=== PATIENT | female | born 1955 | race Caucasian/White ===

== ENCOUNTER → 2016-12-27 | Outpatient (CLI) | payer BC ==
[~2016-12-27] MED LIST: ACETAMINOPHEN-1 EAC1 ORAL; ALBUTEROL SULF8.5 GM INH; AZITHROMYCIN250 MG ORAL; BENTYL10 MG ORAL; CALCIUM500 M3 PO; COREG25 MG ORAL; IBUPROFEN600 MG ORAL; NORCO 5-325 TA1 EACH ORAL; NORVASC5 MG ORAL; PERCOCET 5-3251 EACH ORAL; PRILOSEC OTC20 MG ORAL; PRILOSEC20 MG ORAL; PRILOSEC40 MG ORAL; PROBIOTIC1 EAC5 PO; REGLAN5 MG ORAL; TESSALON PERLE100 MG ORAL; TRAZODONE HCL150 MG ORAL; TRAZODONE HCL50 MG ORAL; XANAX0.5 MG ORAL
[2016-12-27 20:43] LABS: BASOPHILS % (AUTO) 2.1 % (0.0-2.0); EOSINOPHILS % (AUTO) 3.7 % (0.0-3.0); LYMPHOCYTES % (AUTO) 30.1 % (20.0-45.0); MEAN CORPUSCULAR HEMOGLOBIN 32.8 PG (27.0-31.0); MEAN CORPUSCULAR HGB CONC 34.7 G/DL (32.0-36.0); MEAN CORPUSCULAR VOLUME 94 FL (80-99); MEAN PLATELET VOLUME 6.1 FL (6.5-10.1); MONOCYTES % (AUTO) 6.3 % (1.0-10.0); NEUTROPHILS % (AUTO) 57.8 % (45.0-75.0); PLATELET COUNT 212 K/UL (150-450); RED BLOOD COUNT 4.33 M/UL (4.20-5.40); RED CELL DISTRIBUTION WIDTH 11.1 % (11.6-14.8); WHITE BLOOD COUNT 4.9 K/UL (4.8-10.8)
[2016-12-27 20:59] LABS: ALANINE AMINOTRANSFERASE 12 U/L (3-33); ALBUMIN/GLOBULIN RATIO 1.8 (1.0-2.7); ANION GAP 12 (5-15); ASPARTATE AMINO TRANSFERASE 16 U/L (5-40); CALCIUM 9.4 mg/dL (8.6-10.2); CARBON DIOXIDE 27 mEQ/L (20-30); CHLORIDE 102 mEQ/L (98-107); CHOLESTEROL 201 mg/dL (< 200); CHOLESTEROL/HDL RATIO 2.5 (3.3-4.4); CREATININE 0.6 mg/dL (0.5-0.9); GLOMERULAR FILTRATION RATE > 60 mL/min (>60); HEMOLYSIS 8; LDL CHOLESTEROL (CALC.) 100 mg/dL (60-99); MAGNESIUM 1.8 mg/dL (1.7-2.5); PHOSPHORUS 4.4 mg/dL (2.5-4.8); POTASSIUM 3.7 mEQ/L (3.4-4.9); SODIUM 141 mEQ/L (135-145); TOTAL PROTEIN 6.6 g/dL (6.6-8.7)
[2016-12-27 21:01] LABS: HEMOGLOBIN A1C 5.8 % (< 6.0)
== END | disposition home or self-care (01) ==
LOC: LAB 07:13
DX: I10 Essential (primary) hypertension (principal); E66.9 Obesity, unspecified; L40.9 Psoriasis, unspecified; Z83.3 Family history of diabetes mellitus
CPT/HCPCS: 36415; 80053; 80061; 82306; 82607; 82746; 83036; 83735; 84100; 84443; 85025

== ENCOUNTER 2017-04-21 12:45 | Emergency (ER) | payer BC ==
[~2017-04-21] VITALS: Ht 170.2 cm; Wt 74.8 kg
[2017-04-21 13:05] VITALS: BP 147/88
[2017-04-21] MEDS ORDERED: IBUPROFEN600 MG ORAL (13:25)
[2017-04-21] MEDS ORDERED: TRAMADOL HCL50 MG ORAL (13:25)
[2017-04-21 13:29] VITALS: BP 147/88
--- NOTE | 2017-04-21 13:36 | Diagnostic Imaging Report ---
Indication: PAIN Technique: 3 views left hand Comparison: none Findings: No acute fractures. No dislocations. The joint spaces are preserved. Impression: No acute process
--- NOTE | 2017-04-21 22:01 | Emergency Room Report ---
History of Present Illness General Chief Complaint: Upper Extremity Injury Source: Patient Present Illness HPI The patient is a 61-year-old female presenting for left hand pain after falling yesterday. She states that she tripped and fell onto her left hand and felt her fingers hyperextend. Pain is now 8/10 dull ache and does not radiate worse with movement. She denies previous injury to the hand. She denies any numbness or tingling. She denies any other injury or symptoms Allergies: Coded Allergies: No Known Allergies (Unverified , 01/21/13) Patient History Past Medical History: see triage record Pertinent Family History: none Reviewed Nursing Documentation: PMH: Agreed, PSxH: Agreed Nursing Documentation-PMH Hx Cardiac Problems: Yes Hx Hypertension: Yes Hx Cancer: No Hx Gastrointestinal Problems: Yes Hx Neurological Problems: No Review of Systems All Other Systems: negative except mentioned in HPI Physical Exam Vital Signs Date Time Temp Pulse Resp B/P (MAP) Pulse Ox O2 Delivery O2 Flow Rate FiO2 04/21/17 12:49 98.2 62 18 147/88 94 04/21/17 13:05 Room Air Sp02 EP Interpretation: reviewed, normal General Appearance: no apparent distress, alert, GCS 15, non-toxic Head: normocephalic, atraumatic Musculoskeletal: back normal, decreased range of motion - L 2nd finger, swelling - L 2nd and 3rd digit Neurologic: alert, oriented x3, responsive, motor strength/tone normal, sensory intact, speech normal Psychiatric: judgement/insight normal, memory normal, mood/affect normal, no suicidal/homicidal ideation Skin: normal color, no rash, warm/dry, well hydrated Procedures Splinting Splinting : Consent: Verbal Location: L hand Pre-Made Type: metal Splint: volar Pre-Proc Neuro Vasc Exam: normal Post-Proc Neuro Vasc Exam: normal Patient Tolerated: Well Complications: None Medical Decision Making PA Attestation Dr. Medina is my supervising physician. Patient management was discussed with my supervising physician Diagnostic Impression: Primary Impression: Finger sprain Qualified Codes: S63.651A - Sprain of metacarpophalangeal joint of left index finger, initial encounter ER Course The patient is a 61-year-old female presenting for left hand pain after falling yesterday Differential diagnoses considered but not limited to: Fracture, contusion, sprain, dislocation Physical exam: Vitals within normal limits. no apparent distress There is tenderness to palpation, swelling, and slight ecchymosis over the L 2nd - 5th digits. Limited active ROM of the 2nd digit. X-ray of the hand is unremarkable A volar splint is placed as the patient has multiple sprained digits. the patient is given RICE instructions. The patient will followup with PMD. ER precautions given Other X-Ray Diagnostic Results Other X-Ray Diagnostic Results : X-Ray ordered: L hand # of Views/Limited Vs Complete: 3 View Indication: Pain EP Interpretation: Yes SINDHU Xray: Interpretation reviewed, by supervising MD, and agrees with findings. Interpretation: no dislocation, no soft tissue swelling, no fractures Impression: No acute disease Electronically Signed by: Brock Valdovinos PA-C Last Vital Signs Date Time Temp Pulse Resp B/P (MAP) Pulse Ox O2 Delivery O2 Flow Rate FiO2 04/21/17 13:29 98.2 80 18 147/88 94 04/21/17 13:05 Room Air Status: improved Disposition: HOME, SELF-CARE Condition: Improved Scripts Tramadol Hcl* (ULTRAM*) 50 Mg Tablet 50 MG ORAL Q6H Y for For Pain, #10 TAB 0 Refills Prov: BROCK VALDOVINOS.A. 04/21/17 Ibuprofen* (MOTRIN*) 600 Mg Tablet 600 MG ORAL Q8H Y for For Pain, #30 TAB 0 Refills Prov: BROCK VALDOVINOS P.A. 04/21/17 Departure Forms: Return to Work Return to Work Date: Apr 25, 2017 Other Restrictions: Limited use of L hand Patient Instructions: Finger Sprain, RICE for Routine Care of Injuries Additional Instructions: I discussed my findings with the patient. All questions and concerns have been answered. Treatment and medication compliance have been addressed. I advised the patient that they need to follow up with PMD in 3-5 days. Return to ED if pain remains or worsens, numbness or tingling occurs, new rash is noticed, fever is noticed, or if needed for any reason. Patient verbalized understanding of discharge instructions. BROCK VALDOVINOS Apr 21, 2017 22:01
== END 2017-04-21 13:35 | disposition home or self-care (01) ==
LOC: EEVIPCON 13:17 → EMR 13:17
DX: S63.651A Sprain of metacarpophalangeal joint of left index finger, initial encounter (principal); S60.032A Contusion of left middle finger without damage to nail, initial encounter; S60.042A Contusion of left ring finger without damage to nail, initial encounter; S60.052A Contusion of left little finger without damage to nail, initial encounter; S60.022A Contusion of left index finger without damage to nail, initial encounter; W18.30XA Fall on same level, unspecified, initial encounter; Y92.89 Other specified places as the place of occurrence of the external cause; I10 Essential (primary) hypertension
CPT/HCPCS: 29125; 99284

== ENCOUNTER 2017-07-11 13:53 | Emergency (ER) | payer BC, OTHER ==
[~2017-07-11] VITALS: Ht 170.2 cm; Wt 74.8 kg
[~2017-07-11 13:53] MED LIST changes: +TRAMADOL HCL50 MG ORAL
--- NOTE | 2017-07-11 14:47 | Diagnostic Imaging Report ---
Indication: Pain Findings: 2 views of the left humerus were obtained. There is an irregularity about the humeral head that appears to be a sclerotic band. This may be a site of an old injury. There is no acute fracture identified. The bones are osteopenic. There is no malalignment definitely seen. IMPRESSION: No acute injury identified
[2017-07-11] MEDS ORDERED: CALCIUM CARBON650 M2 PO (14:55)
[2017-07-11] MEDS ORDERED: TRAZODONE HCL150 MG ORAL (14:55)
--- NOTE | 2017-07-11 16:50 | Emergency Room Report ---
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 It is exacerbated upon overhead reach, ADLs such as hooking bra straps , and lifting materials about a 90 angle such as hanging an IV bag. Patient has appreciable trauma or fall. Patient reports previous injury of humerus fracture many years ago. Meds bruising, erythema, increased temperature palpation. She reports that upon raising arm tightness and pain radiates up from the left shoulder to the left portion of neck. Denies numbness tingling or loss of sensation or gross motor movements of the extremities. Allergies: Coded Allergies: ALICE INHIBITORS (Verified Allergy, Unknown, 07/11/17) Patient History Past Medical History: see triage record Past Surgical History: none Pertinent Family History: none Last Menstrual Period: Post Now: No Reviewed Nursing Documentation: PMH: Agreed, PSxH: Agreed Nursing Documentation-PMH Hx Cardiac Problems: Yes Hx Hypertension: Yes Hx Cancer: No Hx Gastrointestinal Problems: Yes - Inguinal and hiatal hernia, diverticulosis Review of Systems All Other Systems: negative except mentioned in HPI Physical Exam Vital Signs Date Time Temp Pulse Resp B/P (MAP) Pulse Ox O2 Delivery O2 Flow Rate FiO2 07/11/17 14:49 97.8 60 18 138/73 95 Room Air 97.9 Sp02 EP Interpretation: reviewed, normal General Appearance: no apparent distress, alert, GCS 15, non-toxic Head: normocephalic, atraumatic Eyes: bilateral eye normal inspection, bilateral eye PERRL ENT: hearing grossly normal, normal voice Neck: full range of motion, no bony tend, tender lateral - left lateral ttp and pain with overhead arm reach of the SCM/ Shoulder and trapezius musculature. Respiratory: lungs clear, normal breath sounds, speaking full sentences Cardiovascular #1: regular rate, rhythm Cardiovascular #2: 2+ radial (R), 2+ radial (L) Musculoskeletal: back normal, gait/station normal, normal range of motion, other - FROM with pain exacerbated above the 90* angle, no clicking palpated at time of exam. equal pulses bilaterally. unable to perform lift-off test- pain exacerbated. no weakness and negative neer's exam. , tender - TTP to the anterio-lateral left shoulder. 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 Medical Decision Making SINDHU adan is my supervising Physician whom patient management has been discussed with. Diagnostic Impression: Primary Impression: Shoulder pain, left Qualified Codes: M25.512 - Pain in left shoulder ER Course Pt. 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 It is exacerbated upon overhead reach, ADLs such as hooking bra straps, and lifting materials about a 90 angle such as hanging an IV bag. Patient has appreciable trauma or fall. Patient reports previous injury of humerus fracture many years ago. Meds bruising, erythema, increased temperature palpation. She reports that upon raising arm tightness and pain radiates up from the left shoulder to the left portion of neck. Denies numbness tingling or loss of sensation or gross motor movements of the extremities. Ddx considered but are not limited to Fracture, dislocation, contusion, Sprain/ Strain/Spasm, arthritis, labrum tear, rotator cuff injury just to name a few. Vital signs: are WNL, pt. is afebrile H&PE are most consistent with musculoskeletal injury will perform imaging to r/ o fractures/dislocations. ORDERS: - X-ray Left Shoulder - negative for fx, Dislocation, or significant soft tissue injury, per preliminary read in ED, and signed by SINDHU Ya, my supervising physician has reviewed, and agrees with my interpretation. ED INTERVENTIONS: - none -d/w pt. conservative treatment, and to follow up with a primary care provider. pt given a list of primary care clinics for follow up. d/w pt. to return to the ED with worsening or new symptoms. d/w pt. recommend orthopedic follow up and MRI if symptoms persist. DISCHARGE: At this time pt. is stable for d/c to home. Will provide printed patient care instructions, and any necessary prescriptions. Care plan and follow up instructions have been discussed with the patient prior to discharge. Other X-Ray Diagnostic Results Other X-Ray Diagnostic Results : X-Ray ordered: Left Shoulder # of Views/Limited Vs Complete: 3 View Indication: Pain EP Interpretation: Yes SINDHU Xray: Interpretation reviewed, by supervising MD, and agrees with findings. Interpretation: no dislocation, no soft tissue swelling, no fractures Impression: No acute disease Electronically Signed by: Alecia Ya PA-C Last Vital Signs Date Time Temp Pulse Resp B/P (MAP) Pulse Ox O2 Delivery O2 Flow Rate FiO2 07/11/17 14:49 97.8 60 18 138/73 95 Room Air 97.9 Disposition: HOME, SELF-CARE Condition: Stable Scripts Lidocaine (Lidoderm) 1 Each Adh..patch 1 PATCH TOPIC DAILY, #25 PATCH 0 Refills Patch(es) may remain in place for up to 12 hours in any 24-hour period. Prov: Alecia Ya 07/11/17 Carisoprodol (CARISOPRODOL) 250 Mg Tablet 250 MG ORAL QHS, #4 TAB Prov: Alecia Ya 07/11/17 Diclofenac Potassium (DICLOFENAC POTASSIUM) 50 Mg Tablet 50 MG PO TID, #30 TAB Prov: Alecia Ya 07/11/17 Referrals: Isrrael Storey MD (PCP) Departure Forms: Return to Work Return to Work Date: Jul 11, 2017 Work Restrictions: No Heavy Lifting Other Restrictions: No heavy lifting ( less than 15lbs) , Limited use of left shoulder x 1 week Return to Full Activity: Jul 18, 2017 Patient Instructions: Shoulder Pain Additional Instructions: Take medications as directed. Follow up with a Primary Care Provider in 3-5 days For ORTHOPEDIC REFERRAL , MRI recommended if your symptoms persist Return sooner to ED if new symptoms occur, or current symptoms become worse. Do not drink alcohol, drive, or operate heavy machinery while taking SOMA/ Carisoprodol as this may cause drowsiness. - Please note that this Emergency Department Report was dictated using [employer] record technician technology software, occasionally this can lead to erroneous entry secondary to interpretation by the dictation equipment. Alecia Ya Jul 11, 2017 16:50
[2017-07-11] MEDS ORDERED: CARISOPRODOL250 MG ORAL (16:51)
[2017-07-11] MEDS ORDERED: DICLOFENAC POTA50 MG PO (16:51)
[2017-07-11] MEDS ORDERED: LIDODERM700 M1 TOPIC (16:51)
[2017-07-11 17:04] VITALS: BP 131/81
[2017-07-11 17:06] VITALS: BP 131/81
== END 2017-07-11 17:06 | disposition home or self-care (01) ==
LOC: EMR 14:56
DX: M25.512 Pain in left shoulder (principal); I10 Essential (primary) hypertension; Z88.8 Allergy status to other drugs, medicaments and biological substances
CPT/HCPCS: 99283

== ENCOUNTER → 2018-03-13 | Day surgery (SDC) | payer OTHER ==
[2018-03-13] VITALS (10 sets, daily range): BP systolic 104–147; BP diastolic 64–89
[~2018-03-13] VITALS: Ht 170.2 cm; Wt 63.0 kg
[~2018-03-13] MED LIST changes: +Acetaminophen (Non formulary) 100 ML IV ONE; +Bupivacaine w/Epi 0.25% 30ml Vial INJ ONE; +CALCIUM CARBON650 M2 PO; +CARISOPRODOL250 MG ORAL; +D5 1/2NS 1,000 ML IV SCH; +DICLOFENAC POTA50 MG PO; +HYDROmorphone 1mg/ml Carpuject SUBQ PRN; +Ketorolac 30mg Inj IV PRN; +LIDODERM700 M1 TOPIC; +LR 1000ml ONE; +Midazolam 2mg/2ml Inj ONE; +NS Irrig 4000ml IRRIG ONE; +Norco 5mg/325mg tab ORAL PRN; +Tylenol #3 tab (300mg/30mg) ORAL PRN; +Zemuron 50mg/5ml Inj IV ONE; +ceFAZolin 1gm IVPB IVPB ONE; +celeBREX 200mg Cap **SURGERY PATIENTS ONLY ORAL ONE; +fentaNYL 100 mcg/2 mL IV ONE; +fentaNYL 100 mcg/2 mL IV PRN; +oxyCONTIN 20mg tab ORAL ONE
--- NOTE | 2018-03-13 06:58 | Pre-Procedure Note/Attestation ---
Pre-Procedure Note/Attestation Complete Prior to Procedure Planned Procedure: left Procedure Narrative: left shoulder scope, sad, FULL jamarcus Indications for Procedure Pre-Operative Diagnosis: left shoulder impingement Attestation I attest that I discussed the nature of the procedure; its benefits; risks and complications; and alternatives (and the risks and benefits of such alternatives ), prior to the procedure, with the patient (or the patient's legal airport representative). I attest that, if there was a reasonable possibility of needing a blood transfusion, the patient (or the patient's legal airport representative) was given the [facility] standardized written summary, pursuant to the [place] Blood Safety Act ([place] Health and Safety Code # 1645, as amended). I attest that I re-evaluated the patient just prior to the surgery and that there has been no change in the patient's H&P, except as documented below: NONE Alberto Fair MD Mar 13, 2018 06:58
--- NOTE | 2018-03-13 08:08 | Anethesia Preoperative Eval ---
Anesthesia Pre-op PMH/ROS General Date of Evaluation: Mar 13, 2018 Time of Evaluation: 06:45 ASA Score: ASA 1 Mallampati Score Class I : Soft palate, uvula, fauces, pillars visible Class II: Soft palate, uvula, fauces visible Class III: Soft palate, base of uvula visible Class IV: Only hard plate visible Mallampati Classification: Class II Allergies: Coded Allergies: ALICE INHIBITORS (Verified Allergy, Unknown, 07/11/17) Patient NPO?: Yes NPO Date: Mar 12, 2018 NPO Time: 11:11 Anesthesia Pre-op Phys. Exam Physician Exam Last Vital Signs Date Time Temp Pulse Resp B/P (MAP) Pulse Ox O2 Delivery O2 Flow Rate FiO2 03/13/18 06:20 97.4 95 20 144/75 96 Room Air 97.4 Airway Exam Mallampati Score: Class I Rey Andrade MD Mar 13, 2018 08:08
--- NOTE | 2018-03-13 08:27 | Brief Operative Note ---
Immediate Post Operative Note Operative Note Chief Complaint: left shoulder pain Pre-op Diagnosis: left shoulder impingement Procedure: left shoulder scope, sad, full [place] Post-op Diagnosis: same as pre-op Findings: consistent w/pre-op dx studies Surgeon: md joan Test Worker: rosario mckeon Anesthesiologist: md cassie/Jelly Anesthesia: general Specimen: none Complications: none Condition: stable Fluids: ns Estimated Blood Loss: minimal Drains: none Implant(s) used?: No Elo Mckeno Mar 13, 2018 08:27
--- NOTE | 2018-03-13 08:30 | Immediate Post-Op Evaluation ---
Immediate Post-Op Evalulation Immediate Post-Op Evalulation Procedure: left shoulder secompression and jamarcus procedure Date of Evaluation: Mar 13, 2018 Time of Evaluation: 08:30 Nausea: No Vomiting: No Rey Andrade MD Mar 13, 2018 08:30
--- NOTE | 2018-03-13 11:10 | 48 Hour Post Anesthesia Eval ---
Post Anesthesia Evaluation Procedure: left shoulder secompression and jamarcus procedure Date of Evaluation: Mar 13, 2018 Time of Evaluation: 11:10 Blood Pressure Systolic: 114 0: 68 Pulse Rate: 70 Respiratory Rate: 14 O2 Sat by Pulse Oximetry: 98 Airway: patent Nausea: No Vomiting: No If pain is > 6 Comment: 0 Hydration Status: adequate Cardiopulmonary Status: stable Mental Status/LOC: patient returned to baseline Follow-up Care/Observations: na Post-Anesthesia Complications: none Follow-up care needed: N/A Jelly Cardoza CRNA Mar 13, 2018 11:10
--- NOTE | 2018-03-13 11:42 | 48 Hour Post Anesthesia Eval ---
Post Anesthesia Evaluation Procedure: left shoulder secompression and jamarcus procedure Date of Evaluation: Mar 13, 2018 Time of Evaluation: 11:42 Nausea: No Vomiting: No Rey Andrade MD Mar 13, 2018 11:42
--- NOTE | 2018-03-13 14:15 | Operative Note - Dictated ---
DATE OF OPERATION: 03/13/2018 PREOPERATIVE DIAGNOSES: 1. Left shoulder impingement. 2. Left shoulder AC joint arthritis. POSTOPERATIVE DIAGNOSES: 1. Left shoulder degenerative anterior as well as posterior labral tearing without detachment from glenoid. 2. 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 3. Left shoulder subacromial impingement. 4. Left shoulder AC joint arthritis. PROCEDURE: 1. Left shoulder arthroscopy and extensive intra-articular shaving. 2. Left shoulder debridement of the posterior as well as anterior labrum. 3. Left shoulder subacromial bursoscopy, bursectomy, and subacromial decompression. 4. Left shoulder full Lillian procedure (resection of the distal 1 cm of the clavicle). SURGEON: Alberto Fair M.D. TITLE SPECIALIST: Elo Tompkins PA-C. Private Branch Exchange Operator was present during the actual operative portion of the case and was important and essential part of the operation. During the operation, the data control assistant held and operated the arthroscopic camera for visualization, assisted by manipulating the arm to help with visualization, and helped with essential parts of the repair process as necessary such as operating surgical instruments under surgeon supervision, suture management, and wound closures. ANESTHESIOLOGIST: Tatiana Noe MD ANESTHESIA: General LMA anesthesia combined with interscalene block. EBL: Minimal. COMPLICATIONS: None. SURGICAL INDICATION: The patient is a 62-year-old female, who sustained the above injury to her shoulder. The patient was treated non-operative initially, but this did not alleviate the patients symptoms. Therefore, after discussing all non-surgical and surgical options, and discussing all foreseeable risk and benefits of surgery, the patient opted for surgical treatment as described above. PATIENT POSITIONING: The patient was brought to the operating room table and was placed on the operating room table. All pressure points were well padded. General anesthesia was induced and the patient was then placed in the lateral decubitus position. All pressure points were well padded again and an axillary roll was placed. The patient's shoulder was then prepped and draped in the usual sterile fashion. Time-out was performed and the appropriate preoperative antibiotic was given by the anesthesiologist. EXAMINATION OF SHOULDER UNDER ANESTHESIA: The shoulder was examined under anesthesia with all muscles well relaxed. The shoulder was forward flexed, abducted and was placed through full range of external and internal rotation. The anterior, posterior, and inferior stability of the shoulder was checked. The exam revealed no evidence of adhesive capsulitis and no evidence of instability. PORTAL PLACEMENT: The posterior portal was established 2 cm inferior and 1 cm medial to the edge of the posterior acromion. A 1 cm skin incision was made using an #11 blade and using the blunt obturator, the cannula was gently placed through the capsule. The mid-glenoid portal was established just lateral to the coracoid process under direct visualization. Direction of the cannula was first established using a spinal needle, and subsequently, the cannula was placed through the capsule with a blunt obturator. DIAGNOSTIC ARTHROSCOPY: The biceps tendon was probed and pulled through the joint for visualization. It appeared normal. The biceps anchor was palpated with a probe and was visualized. There was extensive degenerative labral tearing superiorly, posteriorly, and anteriorly. The posterior labrum and axillary recess was visualized. This was normal and there was no evidence of loose cartilage or fragments in this area. There was chondral damage on the inferior half of the glenoid with thinning of the cartilage. There was some irregularities with the inferior 50% of the cartilage on the glenoid. The articular surface of the rotator cuff was visualized and probed next. There was no evidence of articular-sided rotator cuff tear extending from the supraspinatus back to the posterior cuff. The humeral head articular surface was then visualized. There was no evidence of articular cartilage damage. Next the anterior labrum, middle glenohumeral ligament, subscapularis tendon, and the anterior inferior glenohumeral ligament were evaluated. These structures were completely normal. At this point, the scope was moved to the mid-glenoid portal and the posterior structures including the posterior labrum, posterior capsule and posterior cuff were visualized. There was some degenerative labral tearing posteriorly. The subscapularis recess was devoid of any loose bodies and the anterior capsule was well attached to the humeral neck. The middle and anterior inferior glenohumeral ligament was visualized. These structures were completely normal. OPERATIVE DEBRIDEMENTS AND REPAIR: Care was given to all partial thickness tears and frayed structures in the shoulder joint. The frayed rotator cuff and labrum was debrided using a shaver initially through the anterior portal and subsequently through the posterior portal to complete the debridement. This allowed for smooth debridement of all affected structures and all loose fragments were removed. DIAGNOSTIC BURSOSCOPY AND SUBACROMIAL DECOMPRESSION: The subacromial bursa was entered from the posterior portal. The anterior portal was established under the CA ligament using a switching stick. Subacromial arthroscopy was initiated. There was extensive bursitis and thickened and inflamed bursa tissue present. The CA ligament appeared to be scuffed and frayed. The shaver was placed through the anterior cannula and debridement of the hypertrophic bursa tissue was accomplished. Once visualization was adequate, a lateral portal was established using a blunt trochar in the mid portion of the acromion bone in the anterior-posterior direction and approximately 2 cm lateral to the lateral edge of the acromion. Using combination of shaver and electrocautery, the CA ligament was released from the undersurface of the acromion and a complete bursectomy was accomplished. At this point, a subacromial decompression was performed using a ra initially taking off 5-8 mm of the anterolateral edge of the acromion from the lateral portal and viewing from the posterior portal. Then the lateral border of the undersurface of the acromion was decompressed to the same dept as the anterolateral edge. A posterior trough was then created in the acromion in line with the posterior edge of the clavicle. At this point, the scope was placed in the lateral portal and the subacromial decompression was performed from the posterior portal decompressing the undersurface of the acromion to dept of 5-8 mm. The decompression was performed anterior to the previously marked trough all the way medially to the level of the AC joint. At all times, care was given not to take off too much bone in order to avoid risk of fracture of the acromion. An excellent subacromial decompression was performed in this fashion. At this point, the bursal side of the rotator cuff was examined. All the bursa over the rotator cuff was removed and the rotator cuff was examined with a probe. The arm was placed into external rotation, neutral, and then internal rotation and there was no evidence of tear of the rotator cuff. The scope was then placed in the posterior portal and the subacromial decompression was rechecked to assure there is no area of bone spur that would be still impinging onto the rotator cuff. EVALUATION OF DISTAL CLAVICLE AND DISTAL CLAVICLE RESECTION: Care was given to the distal end of the clavicle. Using electrocautery and mala, the distal end of the bursa and soft tissue around the distal end of the clavicle was debrided and cleaned. Care was given not to inflict excessive trauma to the ligaments of the AC joint. The distal end of the clavicle appeared to have an inferior osteophyte extending down well bellow the level of the acromion at the level of the AC joint. This appeared to be impinging onto the supraspinatus muscle belly and the musculotendinous junction of the rotator cuff. The entire AC joint appeared to be arthritic as well. A full Lillian procedure was then performed resecting the distal 1 cm of the clavicle using a ra. The resection was initially performed from the posterior portal and view from the lateral portal, and it subsequently completed viewing from the posterior portal and resecting through the anterior portal with a ra to assure adequate and even resection. Care was given not to damage the superior acromioclavicular ligaments or the coracoacromial ligaments. The extend of the resection was measured by measuring the distance between two spinal needles that were placed perpendicularly through the skin at the edge of the acromion and distal clavicle. CONDITION AT DISCHARGE FROM OPERATING ROOM: The skin was re-approximated and sterile dressing and sling were applied. All lap counts and instrument counts were correct. The patient tolerated the procedure well without complications and was taken to the recovery room in stable condition. Alberto Fair M.D. DR: MIGUEL ÁNGEL JOB#: [id number] CC: CHARLY
== END | disposition home or self-care (01) ==
LOC: SUR 05:20
DX: M75.42 Impingement syndrome of left shoulder (principal); S43.432A Superior glenoid labrum lesion of left shoulder, initial encounter; M94.212 Chondromalacia, left shoulder; M19.012 Primary osteoarthritis, left shoulder; I10 Essential (primary) hypertension; F41.9 Anxiety disorder, unspecified; L40.9 Psoriasis, unspecified; K21.9 Gastro-esophageal reflux disease without esophagitis; Z90.49 Acquired absence of other specified parts of digestive tract
CPT/HCPCS: 29823; 29824; 29826; J0690; J2250; J3010; 94003; 94150

== ENCOUNTER 2019-07-09 09:25 | Outpatient (CLI) | payer MEDICARE ==
[~2019-07-09 09:25] MED LIST changes: -Acetaminophen (Non formulary) 100 ML IV ONE; -Bupivacaine w/Epi 0.25% 30ml Vial INJ ONE; -D5 1/2NS 1,000 ML IV SCH; -HYDROmorphone 1mg/ml Carpuject SUBQ PRN; -Ketorolac 30mg Inj IV PRN; -LR 1000ml ONE; -Midazolam 2mg/2ml Inj ONE; -NS Irrig 4000ml IRRIG ONE; -Norco 5mg/325mg tab ORAL PRN; -Tylenol #3 tab (300mg/30mg) ORAL PRN; -Zemuron 50mg/5ml Inj IV ONE; -ceFAZolin 1gm IVPB IVPB ONE; -celeBREX 200mg Cap **SURGERY PATIENTS ONLY ORAL ONE; -fentaNYL 100 mcg/2 mL IV ONE; -fentaNYL 100 mcg/2 mL IV PRN; -oxyCONTIN 20mg tab ORAL ONE
--- NOTE | 2019-07-10 15:49 | Diagnostic Imaging Report ---
Indication: History of subarachnoid hemorrhage with headache Technique: sagittal T1 fast spin echo, axial T1 FLAIR, axial T2 FLAIR, axial T2 FS PROPELLER, axial T2* GRE, axial diffusion weighted images. ADC and exponential ADC maps generated Comparison: Outside MRI from [facility] dated 06/03/2019. There is also reported on outside CT scan from the same facility, but those images are not available for review Findings: No abnormal areas of restricted diffusion to suggest acute infarction. Previously demonstrated areas of parietal diffusion restriction are no longer evident.. No acute hemorrhage or edema specifically, foci of subarachnoid hemorrhage described on prior outside CT scans are not evident on the current images, nor were evident on prior MRI. Again demonstrated are small foci of nonspecific high T2 signal in the bilateral deep white matter.. No mass effect nor midline shift. Normal size ventricles and extra axial CSF spaces there are probable empty sella incidentally noted, as previously.. Visualized orbits and sinuses are unremarkable. There is no significant interim change Impression: No evidence of acute or recurrent subarachnoid hemorrhage, mass effect, or infarct Previously demonstrated foci of diffusion restriction are no longer evident Nonspecific areas of T2 hyperintensity in the bilateral convexity deep white matter, most likely small foci of chronic microvascular angiopathic changes.
--- NOTE | 2019-07-10 15:49 | Diagnostic Imaging Report ---
Indications: History of subarachnoid hemorrhage, follow-up requested at the time of prior imaging Technique: 3D [id number] images obtained through the [facility] [place]. MIP reconstructions were generated in multiple rotational projections Comparison: Outside studies from [facility] dated 06/03/2019 Findings: Exam demonstrates less motion degradation. Bilateral patent codominant vertebral arteries are noted. Patent nonstenotic basilar artery. Both PICAs are patent and well demonstrated. Both superior cerebellar arteries are patent. Both posterior cerebral arteries are patent. There is a patent right posterior communicating artery demonstrated. The bilateral distal internal carotid arteries are patent without significant stenosis. The bilateral M1 segments of the middle cerebral arteries are patent, as are the proximal branches there is no significant stenosis. Bilateral A1 segments and proximal anterior cerebral arteries are demonstrated. No anterior communicating artery is demonstrated. There is no evidence of aneurysm or vascular malformation. Impression: Negative
== END 2019-07-09 11:25 | disposition home or self-care (01) ==
LOC: MRI 09:25
DX: I60.9 Nontraumatic subarachnoid hemorrhage, unspecified (principal); R51 Headache
CPT/HCPCS: 70544; 70551